=== PATIENT | male | born 1990 | race Caucasian/White ===

== ENCOUNTER 2017-02-03 18:35 | Emergency (ER) | payer BC ==
[2017-02-03] MEDS ORDERED: Sodium Chloride 0.9% 2.5 ML Syringe FLUSH PRN (18:40)
[2017-02-03] MEDS ORDERED: Sodium Chloride 0.9% 10 ML Syringe FLUSH PRN (18:40)
[2017-02-03] MEDS ORDERED: Ketorolac 30 MG/ML SDV IVPUSH ONE (18:40)
[2017-02-03] MEDS ORDERED: Ondansetron 4 MG/2 ML SDV IVPUSH ONE (18:42)
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
[2017-02-03] MEDS ORDERED: Sodium Chloride 0.9% 1,000 ML IV ONE (18:44)
[2017-02-03 19:17] LABS: CHLORIDE,CL 109 mmol/L (98-110); SODIUM,NA 142 mmol/L (136-146)
[2017-02-03] MEDS: Morphine 2 MG/ML Syringe IVPUSH ONE ×2 (19:30→19:36)
[2017-02-03] MEDS ORDERED: Morphine 10 MG/ML Syringe IV ONE (19:33)
[2017-02-03] MEDS ORDERED: Morphine 2 MG/ML Syringe ONE (19:34)
[2017-02-03 22:19] VITALS: BP 132/62
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
== END 2017-02-03 20:18 | disposition home or self-care (01) ==
LOC: MW.ED 18:35
DX: S22.32XA Fracture of one rib, left side, initial encounter for closed fracture (principal); V49.9XXA Car occupant (driver) (passenger) injured in unspecified traffic accident, initial encounter
CPT/HCPCS: 36415; 71101; 72072; 80053; 85025; 85610; 96361; 96374; 96375; 96376; 99283; J2270; J2405; J7040

== ENCOUNTER 2017-08-24 18:18 | Emergency (ER) | payer BC, OTHER ==
--- NOTE | 2017-08-24 19:13 | EDM.PDOC ---
ED HPI GENERAL MEDICAL PROBLEM - General Chief Complaint: Respiratory Problem Stated Complaint: SICK Time Seen by Provider: 08/24/17 19:07 Source of Information: Reports: Patient History Limitations: Reports: No Limitations - History of Present Illness INITIAL COMMENTS - FREE TEXT/NARRATIVE: HISTORY AND PHYSICAL: []27-year-old male presenting with sore throat and a cough for the's 5 days History of Present Illness: []He has history of chewing tobacco Says it is very hard to swallow Review of Systems: As per history of present illness and below otherwise all systems reviewed and negative. Past medical history: As per history of present illness and as reviewed below otherwise noncontributory. Surgical history: As per history of present illness and as reviewed below otherwise noncontributory. Social history: No reported history of drug or alcohol abuse. Family history: As per history of present illness and as reviewed below otherwise noncontributory. Physical exam: Alert oriented answering questions appropriately shortness of breath noted HEENT: Atraumatic, normocehpalic, pupils reactive, negative for conjunctival pallor or scleral icterus, mucous membranes moist, throat clear, neck supple, nontender, trachea midline. Lungs: Clear to auscultation, breath sounds equal bilaterally, chest non tender. Heart: S1S2, regular, negative for clicks, rubs, or JVD. Abdomen: Soft, nondistended, nontender. Negative for masses or hepatossplenmegaly. Negative for costovertebral tenderness. Pelvis: Stable nontender. Genitourinary: Deferred. Rectal: Deferred Extremities: Atraumatic, negative for cords or calf pain. Neurovascular unremarkable. Neuro: Awake, alert, oriented. Cranial nerves II through XII unremarkable. Cerebellum unremarkable. Motor and sensory unremarkable throughout. Exam nonfocal. Discussed the negative findings with the patient and his Diagnostics: []Chest x-ray CBC Rapid strep Therapeutics: [] Impression: []Upper respiratory infection Plan: []Home Described virus versus bacterial [id number] Chloraseptic spray may help his throat azithromyacin Definitive disposition and diagnosis as appropriate pending reevaluation and review of above. Onset: Gradual Duration: Day(s): (4) Location: Reports: Neck, Chest Quality: Reports: Ache Severity: Moderate Improves with: Reports: None Worsens with: Reports: None throat Pain Score (Numeric/FACES): 7 - Related Data Allergies Allergy/AdvReac Type Severity Reaction Status Date / Time No Known Allergies Allergy Verified 08/24/17 18:31 Home Meds: Home Meds Azithromycin [IJP: Azithromycin] 250 mg PO DAILY #6 tab 08/24/17 [Rx] Topiramate [Topamax] 08/24/17 [History] Past Medical History - Past Health History Medical/Surgical History: Denies Medical/Surgical History Neurological History: Reports: Migraines - Infectious Disease History Infectious Disease History: Reports: Chicken Pox - Past Surgical History Musculoskeletal Surgical History: Reports: Other (See Below) Other Musculoskeletal Surgeries/Procedures:: ankle Social & Family History - Family History Family Medical History: Noncontributory - Tobacco Use Smoking Status *Q: Never Smoker Second Hand Smoke Exposure: No - Caffeine Use Caffeine Use: Reports: Energy Drinks - Alcohol Use Days Per Week of Alcohol Use: 4 Number of Drinks Per Day: 2 Total Drinks Per Week: 8 - Recreational Drug Use Recreational Drug Use: No ED ROS GENERAL - Review of Systems Review Of Systems: ROS reveals no pertinent complaints other than HPI. ED EXAM, GENERAL - Physical Exam Exam: See Below (see dictation) Course - Vital Signs Last Recorded V/S: Last Vital Signs Temp 37.2 C 08/24/17 18:33 Pulse 84 08/24/17 18:33 Resp 18 08/24/17 18:33 BP 143/86 H 08/24/17 18:33 Pulse Ox 96 08/24/17 18:33 - Orders/Labs/Meds Orders: Active Orders 24 hr Category Date Time Status Chest 2V [CR] Stat Exams 08/24/17 18:40 Taken COMPREHENSIVE METABOLIC PN,CMP [CHEM] Stat Lab 08/24/17 19:20 Received CULTURE STREP A CONFIRMATION [RM] Stat Lab 08/24/17 19:17 Results STREP SCRN A RAPID W CULT CONF [RM] Stat Lab 08/24/17 19:17 Ordered Labs: Laboratory Tests 08/24/17 Range/Units 19:20 WBC 5.89 (4.0-11.0) K/uL RBC 5.11 (4.50-5.90) M/uL Hgb 15.9 (13.0-17.0) g/dL Hct 44.7 (38.0-50.0) % MCV 87.5 (80.0-98.0) fL MCH 31.1 (27.0-32.0) pg MCHC 35.6 (31.0-37.0) g/dL RDW Std Deviation 40.9 (28.0-62.0) fl RDW Coeff of Nash 13 (11.0-15.0) % Plt Count 226 (150-400) K/uL MPV 10.30 (7.40-12.00) fL Neut % (Auto) 60.6 (48.0-80.0) % Lymph % (Auto) 27.2 (16.0-40.0) % [place] % (Auto) 10.7 (0.0-15.0) % Eos % (Auto) 1.2 (0.0-7.0) % Baso % (Auto) 0.3 (0.0-1.5) % Neut # (Auto) 3.6 (1.4-5.7) K/uL Lymph # (Auto) 1.6 (0.6-2.4) K/uL [place] # (Auto) 0.6 (0.0-0.8) K/uL Eos # (Auto) 0.1 (0.0-0.7) K/uL Baso # (Auto) 0.0 (0.0-0.1) K/uL Nucleated RBC % 0.0 /100WBC Nucleated RBCs # 0 K/uL Departure - Departure Time of Disposition: 19:58 Disposition: Home, Self-Care 01 Condition: Good Clinical Impression: URI (upper respiratory infection) - Discharge Information Prescriptions: Azithromycin [IJP: Azithromycin] 250 mg PO DAILY #6 tab Instructions: Viral Respiratory Infection, [id number] Referrals: Gerson Sanchez MD [Primary Care Provider] - Forms: ED Department Discharge Additional Instructions: The following information is given to patients seen in the emergency department who are being discharged to home. This information is to outline your options for follow-up care. We provide all patients seen in our emergency department with a follow-up referral. The need for follow-up, as well as the timing and circumstances, are variable depending upon the specifics of your emergency department visit. If you don't have a primary care physician on staff, we will provide you with a referral. We always advise you to contact your personal physician following an emergency department visit to inform them of the circumstance of the visit and for follow-up with them and/or the need for any referrals to a consulting specialist. The emergency department will also refer you to a specialist when appropriate. This referral assures that you have the opportunity for followup care with a specialist. All of these measure are taken in an effort to provide you with optimal care, which includes your followup. Under all circumstances we always encourage you to contact your private physician who remains a resource for coordinating your care. When calling for followup care, please make the office aware that this follow-up is from your recent emergency room visit. If for any reason you are refused follow-up, please contact the [facility] emergency department at and asked to speak to the emergency department charge nurse. You have a upper respiratory infection that will likely not respond to an antibiotic Request is azithromycin Chloraseptic spray [id number] may help with your sore throat Stopping tobacco may also help with your sore throat Follow-up with your primary care doctor next week Return to the emergency room as directed and discussed - My Orders Last 24 Hours: My Active Orders 08/24/17 18:40 Chest 2V [CR] Stat 08/24/17 19:17 CULTURE STREP A CONFIRMATION [RM] Stat STREP SCRN A RAPID W CULT CONF [RM] Stat 08/24/17 19:20 COMPREHENSIVE METABOLIC PN,CMP [CHEM] Stat - Assessment/Plan Last 24 Hours: My Active Orders 08/24/17 18:40 Chest 2V [CR] Stat 08/24/17 19:17 CULTURE STREP A CONFIRMATION [RM] Stat STREP SCRN A RAPID W CULT CONF [RM] Stat 08/24/17 19:20 COMPREHENSIVE METABOLIC PN,CMP [CHEM] Stat
[2017-08-24 19:55] LABS: CHLORIDE,CL 105 mmol/L (98-107); SODIUM,NA 139 mmol/L (136-148)
[2017-08-24 20:13] VITALS: BP 140/84
--- NOTE | 2017-08-26 14:24 | CR ---
EXAM DATE: 08/24/17 PATIENT'S AGE: 27 Patient: [facility] Facility: [place], [place] Site . Site : 1990 Study: XRay Chest [id number]/28/2018 6:54:02 PM Ordering Physician: Doctor Perez Final Report: INDICATION: Cough; sore throat for a few days; coughing up large amounts of dark blood. COMPARISON: None. TECHNIQUE: Two-view chest. FINDINGS: Normal size cardiac silhouette. Clear lung simms without evidence of acute pneumonic infiltrates or CHF. No pneumothorax or pleural effusion. IMPRESSION: Negative chest. Dictated by Dale Marie MD @ Aug 24 2017 7:13PM (Electronic Signature) Report Signed by Proxy. YANIV
== END 2017-08-24 20:10 | disposition home or self-care (01) ==
LOC: MW.ED 18:18
DX: J06.9 Acute upper respiratory infection, unspecified (principal); F17.290 Nicotine dependence, other tobacco product, uncomplicated
CPT/HCPCS: 36415; 71046; 71046-26; 80053; 85025; 87081; 87880; 99282; 99283

== ENCOUNTER 2020-03-14 00:53 | Emergency (ER) | payer BC, OTHER ==
--- NOTE | 2020-03-14 00:59 | EDM.PDOC ---
ED HPI GENERAL MEDICAL PROBLEM - General Chief Complaint: Behavioral/Psych Stated Complaint: MENTAL HEALTH Time Seen by Provider: 03/14/20 00:57 - History of Present Illness INITIAL COMMENTS - FREE TEXT/NARRATIVE: History of present illness: [] The police escorted this patient to the department. They had been called by a witness they considered reliable but said he was holding a gun to his head threatening to commit suicide. The supervisor drapery hanging shared with me screenshots of text messages the patient had sensing was going to blow his brains out and saying he was going to kill himself. They expressed anger at his disagreement about whether he had been an adequate father and . Repeatedly he had threatened to kill himself and those attacks. He admitted to the police that they were his texts. He admits that he was angry with his . He admits that the texts are his. He says he has no real intent to hurt himself. He denies that he held a gun to his head. He is never been admitted for depression or treated for depression and he has no prior suicide attempt. He is involved in an ongoing dispute with his and plans to sleep on the couch. He did not see any resolution of these events in the near future. Review of systems: As per history of present illness and below otherwise all systems reviewed and negative. Past medical history: As per history of present illness and as reviewed below otherwise noncontributory. Surgical history: As per history of present illness and as reviewed below otherwise noncontributory. Social history: No reported history of drug or alcohol abuse. Family history: As per history of present illness and as reviewed below otherwise noncontributory. Physical exam: Constitutional - well developed, well-nourished and in no acute distress HEENT - normocephalic, no evidence of trauma - external nose and mouth normal - no mass in neck and no JVD - mucosae moist EYES - full EOM, PERRL, no icterus - no evidence of inflammation, injection, or drainage Respiratory - no respiratory distress, equal bilateral expansion, lungs clear to auscultation and no abnormal lung sounds Cardiovascular - Regular Rhythm with S1 and S2 appreciated and no murmur, gallop or rub. GI - abdomen soft without distension or organomegaly - normal bowel sounds - no guard or rebound Musculoskeletal no gross deformity of long bones or joints - no tenderness, swelling or edema Neurologic - Alert and oriented times four - CN II-XII grossly intact - motor sensory and coordination symmetrically normal Psychiatric - appropriate mood and affect with normal thought content Hematologic - No petechiae or purpura - mucosa appropriate color and sclera not pale - normal nail bed color and refill Integument - no rash or evidence of trauma - normal turgor Diagnostics: [] Therapeutics: [] Impression: [] Plan: [] Definitive disposition and diagnosis as appropriate pending reevaluation and review of above. - Related Data Allergies Allergy/AdvReac Type Severity Reaction Status Date / Time No Known Allergies Allergy Verified 03/14/20 02:48 Home Meds: Home Meds . [No Known Home Meds] 03/14/20 [History] Past Medical History - Past Health History Medical/Surgical History: Denies Medical/Surgical History Neurological History: Reports: Migraines - Infectious Disease History Infectious Disease History: Reports: Chicken Pox - Past Surgical History Musculoskeletal Surgical History: Reports: Other (See Below) Other Musculoskeletal Surgeries/Procedures:: ankle Social & Family History - Family History Family Medical History: No Pertinent Family History - Caffeine Use Caffeine Use: Reports: Energy Drinks ED ROS GENERAL - Review of Systems Review Of Systems: Comprehensive ROS is negative, except as noted in HPI. ED EXAM, GENERAL - Physical Exam Exam: See Below Free Text/Narrative:: My physical exam is in the HPI #1 Interpretation EKG Interpretation Comments: EKG done 03/14/2020 1:39 AM and interpreted at 1:41 AM. Sinus rhythm heart rate 96 Redig XVI QRS duration 91 MI 140 QTc 416[address] Some minor ST abnormalities. When compared to 02/10/2020 there is a shift in the axis but otherwise no acute change and there is no obvious injury. Impression no acute injury Course - Vital Signs Text/Narrative:: Hard time with been with the patient he has been completely and appeared sober. As of the nature of his threat in the admission that he made the threats in the text to his father I feel he needs psychiatric evaluation. The situational depression with no prior threat in the significant violent nature of his threat suggest to be a high risk of potential suicide. This story directly to the psychiatrist Dr.Preszler davalos [place] and she agreed to accept this patient on the hold at the [facility]. Last Recorded V/S: Last Vital Signs Temp 36.4 C 03/14/20 02:20 Pulse 107 H 03/14/20 03:00 Resp 18 03/14/20 03:00 BP 139/79 03/14/20 03:00 Pulse Ox 98 03/14/20 03:00 - Orders/Labs/Meds Orders: Active Orders 24 hr Category Date Time Status EKG Documentation Completion [RC] AM Care 03/14/20 01:24 Active Saline Lock Insert [OM.PC] Stat Oth 03/14/20 01:24 Ordered Labs: Laboratory Tests 03/14/20 03/14/20 03/14/20 Range/Units 01:10 01:30 01:30 WBC 9.27 (4.0-11.0) K/uL RBC 5.23 (4.50-5.90) M/uL Hgb 16.5 (13.0-17.0) g/dL Hct 48.0 (38.0-50.0) % MCV 91.8 (80.0-98.0) fL MCH 31.5 (27.0-32.0) pg MCHC 34.4 (31.0-37.0) g/dL RDW Std Deviation 45.8 (28.0-62.0) fl RDW Coeff of Nash 14 (11.0-15.0) % Plt Count 253 (150-400) K/uL MPV 10.60 (7.40-12.00) fL Neut % (Auto) 50.6 (48.0-80.0) % Lymph % (Auto) 38.5 (16.0-40.0) % [place] % (Auto) 9.6 (0.0-15.0) % Eos % (Auto) 1.1 (0.0-7.0) % Baso % (Auto) 0.2 (0.0-1.5) % Neut # (Auto) 4.7 (1.4-5.7) K/uL Lymph # (Auto) 3.6 H (0.6-2.4) K/uL [place] # (Auto) 0.9 H (0.0-0.8) K/uL Eos # (Auto) 0.1 (0.0-0.7) K/uL Baso # (Auto) 0.0 (0.0-0.1) K/uL Nucleated RBC % 0.0 /100WBC Nucleated RBCs # 0 K/uL Sodium 142 (136-148) mmol/L Potassium 3.9 (3.5-5.1) mmol/L Chloride 107 (98-107) mmol/L Carbon Dioxide 21.8 (21.0-32.0) mmol/L BUN 9 (7.0-18.0) mg/dL Creatinine 1.1 (0.8-1.3) mg/dL Est Cr Clr Drug Dosing TNP Estimated GFR (MDRD) > 60.0 ml/min Glucose 108 H (74-106) mg/dL Calcium 8.8 (8.5-10.1) mg/dL Total Bilirubin 0.2 (0.2-1.0) mg/dL AST 42 H (15-37) IU/L ALT 93 H (14-63) IU/L Alkaline Phosphatase 96 (46-116) U/L Total Protein 7.8 (6.4-8.2) g/dL Albumin 4.2 (3.4-5.0) g/dL Globulin 3.6 (2.6-4.0) g/dL Albumin/Globulin Ratio 1.2 (0.9-1.6) TSH 3rd Generation 3.45 (0.36-3.74) uIU/mL Salicylates 1.2 (0-20) mg/dL Urine Opiates Screen NEGATIVE (NEGATIVE) Ur Oxycodone Screen NEGATIVE (NEGATIVE) Urine Methadone Screen NEGATIVE (NEGATIVE) Acetaminophen ug/mL Ur Barbiturates Screen NEGATIVE (NEGATIVE) Ur Phencyclidine Scrn NEGATIVE (NEGATIVE) Ur Amphetamine Screen NEGATIVE (NEGATIVE) U Methamphetamines Scrn NEGATIVE (NEGATIVE) U Benzodiazepines Scrn NEGATIVE (NEGATIVE) U Cocaine Metab Screen NEGATIVE (NEGATIVE) U Marijuana (THC) Screen NEGATIVE (NEGATIVE) Ethyl Alcohol 116 mg/dL SARS CoV-2 RNA Rapid CHRISTY (NEGATIVE) 03/14/20 03/14/20 Range/Units 01:30 01:35 WBC (4.0-11.0) K/uL RBC (4.50-5.90) M/uL Hgb (13.0-17.0) g/dL Hct (38.0-50.0) % MCV (80.0-98.0) fL MCH (27.0-32.0) pg MCHC (31.0-37.0) g/dL RDW Std Deviation (28.0-62.0) fl RDW Coeff of Nash (11.0-15.0) % Plt Count (150-400) K/uL MPV (7.40-12.00) fL Neut % (Auto) (48.0-80.0) % Lymph % (Auto) (16.0-40.0) % [place] % (Auto) (0.0-15.0) % Eos % (Auto) (0.0-7.0) % Baso % (Auto) (0.0-1.5) % Neut # (Auto) (1.4-5.7) K/uL Lymph # (Auto) (0.6-2.4) K/uL [place] # (Auto) (0.0-0.8) K/uL Eos # (Auto) (0.0-0.7) K/uL Baso # (Auto) (0.0-0.1) K/uL Nucleated RBC % /100WBC Nucleated RBCs # K/uL Sodium (136-148) mmol/L Potassium (3.5-5.1) mmol/L Chloride (98-107) mmol/L Carbon Dioxide (21.0-32.0) mmol/L BUN (7.0-18.0) mg/dL Creatinine (0.8-1.3) mg/dL Est Cr Clr Drug Dosing Estimated GFR (MDRD) ml/min Glucose (74-106) mg/dL Calcium (8.5-10.1) mg/dL Total Bilirubin (0.2-1.0) mg/dL AST (15-37) IU/L ALT (14-63) IU/L Alkaline Phosphatase (46-116) U/L Total Protein (6.4-8.2) g/dL Albumin (3.4-5.0) g/dL Globulin (2.6-4.0) g/dL Albumin/Globulin Ratio (0.9-1.6) TSH 3rd Generation (0.36-3.74) uIU/mL Salicylates (0-20) mg/dL Urine Opiates Screen (NEGATIVE) Ur Oxycodone Screen (NEGATIVE) Urine Methadone Screen (NEGATIVE) Acetaminophen <2.0 ug/mL Ur Barbiturates Screen (NEGATIVE) Ur Phencyclidine Scrn (NEGATIVE) Ur Amphetamine Screen (NEGATIVE) U Methamphetamines Scrn (NEGATIVE) U Benzodiazepines Scrn (NEGATIVE) U Cocaine Metab Screen (NEGATIVE) U Marijuana (THC) Screen (NEGATIVE) Ethyl Alcohol mg/dL SARS CoV-2 RNA Rapid CHRISTY NEGATIVE (NEGATIVE) Departure - Departure Time of Disposition: 04:00 Disposition: DC/Tfer to Psych Hosp/Unit [facility] Condition: Good Clinical Impression: Depressive disorder, Threatening suicide - Discharge Information Referrals: Jazlyn Coronado DO [Primary Care Provider] - Forms: ED Department Discharge Sepsis Event Note (ED) - Focused Exam Vital Signs: Vital Signs Temp Pulse Resp BP Pulse Ox 03/14/20 03:00 107 H 18 139/79 98 03/14/20 02:20 36.4 C 100 18 152/68 H 95 03/14/20 01:00 36.1 C 104 H 20 174/111 H 96 - My Orders Last 24 Hours: My Active Orders 03/14/20 01:24 EKG Documentation Completion [RC] AM Saline Lock Insert [OM.PC] Stat - Assessment/Plan Last 24 Hours: My Active Orders 03/14/20 01:24 EKG Documentation Completion [RC] AM Saline Lock Insert [OM.PC] Stat
[2020-03-14 02:11] LABS: BLOOD UREA NITROGEN,BUN 9 mg/dL (7.0-18.0); CARBON DIOXIDE,CO2 21.8 mmol/L (21.0-32.0); CHLORIDE,CL 107 mmol/L (98-107); GLUCOSE RANDOM 108 mg/dL (74-106); POTASSIUM,K 3.9 mmol/L (3.5-5.1); SODIUM,NA 142 mmol/L (136-148)
[2020-03-14] MEDS ORDERED: Acetaminophen 500 MG Tab PO ONE (03:32)
[2020-03-14 06:31] VITALS: BP 128/59; PULSE 89
== END 2020-03-14 09:05 ==
LOC: MW.ED 00:53
DX: F32.9 Major depressive disorder, single episode, unspecified (principal); Z20.828 Contact with and (suspected) exposure to other viral communicable diseases
CPT/HCPCS: 36415; 80053; 80305; 80307; 84443; 85025; 87635; 93005; 99285; A9270; 93010; 99283; U0002

== ENCOUNTER 2020-04-07 09:13 | Day surgery (SDC) | payer OTHER ==
[~2020-04-07 09:13] MED LIST: Glycopyrrolate 0.2 MG/ML SDV ONE; Lidocaine 2% 5 ML SDV ONE; Midazolam 1 MG/ML 2 ML SDV ONE; Propofol 200 MG/20 ML SDV ONE
--- NOTE | 2020-04-07 09:56 | PCM.PREANE ---
Preanesthetic Assessment - Anesthesia/Transfusion/Family Hx Anesthesia History: Prior Anesthesia Without Reaction Family History of Anesthesia Reaction: No Transfusion History: No Prior Transfusion(s) Intubation History: Unknown - Review of Systems General: No Symptoms Pulmonary: No Symptoms Cardiovascular: No Symptoms Gastrointestinal: Abdominal Pain (epigastric) Neurological: No Symptoms Other: Reports: None - Physical Assessment Height: 6 ft 1 in Weight: 125.192 kg ASA Class: 2 Mental Status: Alert & Oriented x3 Airway Class: Mallampati = 1 Dentition: Reports: Normal Dentition Thyro-Mental Finger Breadths: 3 Mouth Opening Finger Breadths: 2 (small mouth) ROM/Head Extension: Full Lungs: Clear to Auscultation, Normal Respiratory Effort Cardiovascular: Regular Rate, Regular Rhythm - Allergies Allergies/Adverse Reactions: Allergies Allergy/AdvReac Type Severity Reaction Status Date / Time No Known Allergies Allergy Verified 04/01/20 07:50 - Blood Blood Available: No - Anesthesia Plan Pre-Op Medication Ordered: None - Acknowledgements Anesthesia Type Planned: MAC Pt an Appropriate Candidate for the Planned Anesthesia: Yes Alternatives and Risks of Anesthesia Discussed w Pt/Guardian: Yes Pt/Guardian Understands and Agrees with Anesthesia Plan: Yes PreAnesthesia Questionnaire - Past Health History Medical/Surgical History: Denies Medical/Surgical History HEENT History: Reports: None Cardiovascular History: Reports: None Respiratory History: Reports: None Gastrointestinal History: Reports: GERD Other Gastrointestinal History: epigastric pain Genitourinary History: Reports: None Musculoskeletal History: Reports: Fracture Other Musculoskeletal History: hx fx ankle, ribs and collarbone Neurological History: Reports: Migraines Psychiatric History: Reports: Addiction, Anxiety, Depression Endocrine/Metabolic History: Reports: Obesity/BMI 30+ (BMI 36.4) Hematologic History: Reports: None Immunologic History: Reports: None Oncologic (Cancer) History: Reports: None Dermatologic History: Reports: None - Infectious Disease History Infectious Disease History: Reports: Chicken Pox - Past Surgical History HEENT Surgical History: Reports: Tonsillectomy GI Surgical History: Reports: Other (See Below) (anal fistulectomy) Other Musculoskeletal Surgeries/Procedures:: ankle - SUBSTANCE USE Tobacco Use Status *Q: Never Tobacco User Recreational Drug Use History: Yes - HOME MEDS Home Medications: Home Meds Pantoprazole Sodium [Protonix] 40 mg PO DAILY 04/01/20 [History] Sertraline HCl 50 mg PO DAILY 04/01/20 [History] - CURRENT (IN HOUSE) MEDS Current Meds: Current Medications Discontinued Medications Glycopyrrolate (Robinul) Confirm Administered Dose 0.2 mg .ROUTE .STK-MED ONE Stop: 04/07/20 07:03 Lidocaine (Xylocaine-Mpf 2%) Confirm Administered Dose 5 ml .ROUTE .STK-MED ONE Stop: 04/07/20 07:03 Midazolam HCl (Versed 1 Mg/Ml) Confirm Administered Dose 2 mg .ROUTE .STK-MED ONE Stop: 04/07/20 07:03 Propofol (Diprivan 20 Ml) Confirm Administered Dose 200 mg .ROUTE .STK-MED ONE Stop: 04/07/20 07:03
[2020-04-07] MEDS ORDERED: Propofol 200 MG/20 ML SDV ONE (10:12)
--- NOTE | 2020-04-07 10:23 | PCM.OPNOTE ---
- General Post-Op/Procedure Note Date of Surgery/Procedure: 04/07/20 Operative Procedure(s): EGD with biopsies Findings: Gastritis dictation number [id number] Pre Op Diagnosis: Abdominal pain Post-Op Diagnosis: Gastritis Primary Surgeon: Olu Godoy Pathology: biopsies Complications: None Condition: Good
--- NOTE | 2020-04-07 10:29 | PCM.POSTAN ---
POST ANESTHESIA ASSESSMENT - MENTAL STATUS Mental Status: Alert, Oriented - VITAL SIGNS Vital Signs: Last Vital Signs Temp 36.7 C 04/07/20 09:59 Pulse 70 04/07/20 09:59 Resp 16 04/07/20 09:59 BP 134/70 04/07/20 09:59 Pulse Ox 96 04/07/20 09:59 - RESPIRATORY Respiratory Status: Respiratory Rate WNL, Airway Patent, O2 Saturation Stable - CARDIOVASCULAR CV Status: Pulse Rate WNL, Blood Pressure Stable - GASTROINTESTINAL GI Status: No Symptoms - PAIN Pain Score: 0 - POST OP HYDRATION Hydration Status: Adequate & Stable - OBSERVATIONS Free Text/Narrative:: No anesthesia problems
[2020-04-07 10:52] VITALS: BP 115/56; PULSE 95
--- NOTE | 2020-04-07 10:54 | PCM48HPAN ---
Post Anesthesia Note - EVALUATION WITHIN 48HRS OF ANESTHETIC Vital Signs in Normal Range: Yes Patient Participated in Evaluation: Yes Respiratory Function Stable: Yes Airway Patent: Yes Cardiovascular Function Stable: Yes Hydration Status Stable: Yes Pain Control Satisfactory: Yes Nausea and Vomiting Control Satisfactory: Yes Mental Status Recovered: Yes Vital Signs: Last Vital Signs Temp 92 C H 04/07/20 10:37 Pulse 95 04/07/20 10:37 Resp 16 04/07/20 10:37 BP 115/56 L 04/07/20 10:37 Pulse Ox 95 04/07/20 10:37 - COMMENTS/OBSERVATIONS Free Text/Narrative:: No anesthesia problems
[2020-04-07] MEDS ORDERED: Lactated Ringers 1,000 ML IV SCH (11:00)
--- NOTE | 2020-04-07 12:49 | OR ---
SURGEON: JEAN-CLAUDE READ MD DATE OF PROCEDURE: 04/07/2020 PREOPERATIVE DIAGNOSIS: Midepigastric abdominal pain. POSTOPERATIVE DIAGNOSIS: Mild gastritis. PROCEDURE PERFORMED: Esophagogastroduodenoscopy with biopsies. LIMITATIONS: None. ANESTHESIA: General with anesthesiologist. REASON FOR PROCEDURE: The patient is a pleasant 30-year-old gentleman who says for the past 2 to 3 months, he has had midepigastric pain that is sharp and feels like a pressure. It is made worse in the evening when he is lying down, made better if he passes gas. He denies any real heartburn symptoms. The patient was scheduled for an upper endoscopy. The patient also had a subsequent ultrasound of the abdomen that found multiple gallstones, but gallbladder wall thickening and no peritoneal fluid. This was discussed with the patient. PROCEDURE IN DETAIL: Physical exam was performed. The major risks and benefits associated with the procedure were explained to the patient in detail. The patient verbalized understanding of the same. The patient was then connected to the appropriate monitoring devices and IV started. EKG, pulse, pulse oximetry, blood pressure, and capnography were monitored throughout the procedure. The patient's oxygen and sedation were provided by the anesthesiologist. After adequate sedation was achieved, an upper endoscope was advanced under direct visualization without much difficulty to the upper GI tract. The anatomy and the mucosa of the esophagus, GE junction, stomach, and at least the 2nd part of the duodenum were all inspected. Duodenum appeared normal. Scope was brought back into the stomach. The patient did have some mild gastritis throughout the entirety of the stomach. Both retro and antegrade views of the stomach were done. No ulcerations were seen. Biopsies were done of the pylorus, and then several random biopsies of the rest of the stomach were done. Scope was withdrawn to the GE junction. GE junction was approximately 40 cm from the incisor. The Z-line was intact with a good squamocolumnar junction. The scope was brought back into the stomach. There was good hemostasis at the biopsy sites. The stomach was deflated. The scope was then brought up through the esophagus. Esophagus appeared normal. Scope was completely removed, and the procedure was terminated. ENDOSCOPIC DIAGNOSIS: Mild gastritis. RECOMMENDATIONS: The patient should continue taking his PPI. He should also continue with cessation of alcohol. The patient should follow up in the clinic to go over the pathology. At that time, we will also go over again his gallbladder ultrasound. JOSELO / DEJA /[id number]
== END 2020-04-07 10:50 | disposition home or self-care (01) ==
LOC: MW.SDS 09:13
PROVIDERS: ATTEND Surgery
DX: K29.50 Unspecified chronic gastritis without bleeding (principal); F17.210 Nicotine dependence, cigarettes, uncomplicated; E66.9 Obesity, unspecified; Z68.36 Body mass index [BMI] 36.0-36.9, adult; Z79.899 Other long term (current) drug therapy
CPT/HCPCS: 43239; 88305; 88312; J2001; J2250; J2704; J3490; 00731

== ENCOUNTER 2020-04-26 11:07 | Day surgery (SDC) | payer OTHER ==
[~2020-04-26 11:07] MED LIST changes: +Acetaminophen 1,000 MG in Premix Bag 1 BAG IV ONE; +Indocyanine Green 25 MG SDV ONE; +Lactated Ringers 1,000 ML IV SCH; +Ondansetron 4 MG/2 ML SDV ONE; +Pregabalin 75 MG Cap PO SCH; +Rocuronium Bromide 50 MG/5 ML Syringe ONE; +cefOXitin 2 GM in Premix Bag 1 BAG IV ONE; +fentaNYL 250 MCG/5 ML SDV ONE
[2020-04-26] MEDS ORDERED: EPINEPHrine 1:10,000 1 MG/10 ML Syringe IVPUSH PRN (11:35)
[2020-04-26] MEDS ORDERED: Atropine 0.1 MG/ML 10 ML Syringe IVPUSH PRN ×2 (11:35)
[2020-04-26] MEDS ORDERED: Albuterol 0.083% 2.5 MG/3 ML Neb Soln NEB PRN (11:35)
[2020-04-26] MEDS ORDERED: 50% Dextrose in Water 50 ML Syringe IVPUSH PRN (11:35)
[2020-04-26] MEDS ORDERED: Naloxone 0.4 MG/ML Syringe IVPUSH PRN (11:35)
--- NOTE | 2020-04-26 11:40 | PCM.PREANE ---
Preanesthetic Assessment - Anesthesia/Transfusion/Family Hx Anesthesia History: Prior Anesthesia Without Reaction Family History of Anesthesia Reaction: No Transfusion History: No Prior Transfusion(s) Intubation History: Unknown - Review of Systems General: No Symptoms Pulmonary: No Symptoms Cardiovascular: No Symptoms Gastrointestinal: No Symptoms Neurological: No Symptoms Other: Reports: None - Physical Assessment NPO Status Date: 04/25/20 Height: 6 ft 1 in Weight: 125.645 kg ASA Class: 2 Mental Status: Alert & Oriented x3 Airway Class: Mallampati = 2 Dentition: Reports: Normal Dentition ROM/Head Extension: Full Lungs: Clear to Auscultation, Normal Respiratory Effort Cardiovascular: Regular Rate - Allergies Allergies/Adverse Reactions: Allergies Allergy/AdvReac Type Severity Reaction Status Date / Time No Known Allergies Allergy Verified 04/20/20 14:27 - Blood Blood Available: No - Anesthesia Plan Pre-Op Medication Ordered: None - Acknowledgements Anesthesia Type Planned: General Anesthesia Pt an Appropriate Candidate for the Planned Anesthesia: Yes Alternatives and Risks of Anesthesia Discussed w Pt/Guardian: Yes Pt/Guardian Understands and Agrees with Anesthesia Plan: Yes Additional Comments: meds: zoloft and trazadone (no tramadol) PLAN: get PreAnesthesia Questionnaire - Past Health History Medical/Surgical History: Denies Medical/Surgical History HEENT History: Reports: None Cardiovascular History: Reports: None Respiratory History: Reports: None Gastrointestinal History: Reports: Other (See Below) Other Gastrointestinal History: intermittent epigastric pain Genitourinary History: Reports: None Musculoskeletal History: Reports: Fracture Other Musculoskeletal History: hx fx ankle, ribs and collarbone Neurological History: Reports: Migraines Psychiatric History: Reports: Addiction, Anxiety, Depression Endocrine/Metabolic History: Reports: Obesity/BMI 30+ Hematologic History: Reports: None Immunologic History: Reports: None Oncologic (Cancer) History: Reports: None Dermatologic History: Reports: None - Infectious Disease History Infectious Disease History: Reports: Chicken Pox - Past Surgical History Head Surgeries/Procedures: Reports: None HEENT Surgical History: Reports: Tonsillectomy Cardiovascular Surgical History: Reports: None Respiratory Surgical History: Reports: None GI Surgical History: Reports: EGD, Other (See Below) Other GI Surgeries/Procedures: hx anal fistulectomy Male Surgical History: Reports: None Endocrine Surgical History: Reports: None Neurological Surgical History: Reports: None Musculoskeletal Surgical History: Reports: Other (See Below) Other Musculoskeletal Surgeries/Procedures:: repair of fx ankle Oncologic Surgical History: Reports: None Dermatological Surgical History: Reports: None - SUBSTANCE USE Tobacco Use Status *Q: Former Tobacco User Tobacco Use Within Last Twelve Months: Other (See Below) - HOME MEDS Home Medications: Home Meds Sertraline HCl 100 mg PO DAILY 04/01/20 [History] Fish Oil/Talent-3 Fatty Acids [Fish Oil 1,000 MG] 1 tab PO DAILY 04/20/20 [History] Multivitamin 1 tab PO DAILY 04/20/20 [History] traZODone HCl [Trazodone HCl] 50 mg PO BEDTIME 04/20/20 [History] - CURRENT (IN HOUSE) MEDS Current Meds: Current Medications Albuterol (Proventil Neb Soln) 2.5 mg NEB ONETIME PRN PRN Reason: Wheezing Atropine Sulfate (Atropine 0.1 Mg/Ml) 0.5 mg IVPUSH ASDIRECTED PRN PRN Reason: Hypo-perfusion Atropine Sulfate (Atropine 0.1 Mg/Ml) 1 mg IVPUSH ASDIRECTED PRN PRN Reason: Hypo-Perfusion Dextrose/Water (Dextrose 50% In Water) 50 ml IVPUSH ASDIRECTED PRN PRN Reason: Hypoglycemia Epinephrine HCl (Epinephrine 1:10,000) 1 mg IVPUSH ASDIRECTED PRN PRN Reason: ACLS Guidelines Fentanyl (Sublimaze) 50 - 100 mcg IVPUSH Q5M PRN PRN Reason: Pain Lactated Ringer's (Ringers, Lactated) 1,000 mls @ 125 mls/hr IV ASDIRECTED ELI Naloxone HCl (Narcan) 0.1 mg IVPUSH ASDIRECTED PRN PRN Reason: Respiratory Depression Pregabalin (Lyrica) 150 mg PO DAILY ELI Discontinued Medications Fentanyl (Sublimaze) Confirm Administered Dose 250 mcg .ROUTE .STK-MED ONE Stop: 04/26/20 11:03 Glycopyrrolate (Robinul) Confirm Administered Dose 0.4 mg .ROUTE .STK-MED ONE Stop: 04/26/20 11:02 Cefoxitin Sodium 2 gm/ Premix 50 mls @ 100 mls/hr IV ONETIME ONE Stop: 04/25/20 15:18 Acetaminophen 1,000 mg/ Premix 100 mls @ 400 mls/hr IV NOW ONE Stop: 04/26/20 09:14 Indocyanine Green (Indocyanine Green) 5 mg .XX ONETIME ONE Stop: 04/26/20 09:01 Lidocaine (Xylocaine-Mpf 2%) Confirm Administered Dose 5 ml .ROUTE .STK-MED ONE Stop: 04/26/20 11:02 Midazolam HCl (Versed 1 Mg/Ml) Confirm Administered Dose 2 mg .ROUTE .STK-MED ONE Stop: 04/26/20 11:02 Ondansetron HCl (Zofran) Confirm Administered Dose 4 mg .ROUTE .STK-MED ONE Stop: 04/26/20 11:02 Propofol (Diprivan 20 Ml) Confirm Administered Dose 200 mg .ROUTE .STK-MED ONE Stop: 04/26/20 11:02 Rocuronium [place] (Rocuronium [place]) Confirm Administered Dose 50 mg .ROUTE .STK-MED ONE Stop: 04/26/20 11:02
[2020-04-26] MEDS ORDERED: Octyl 2-Cyanoacrylate 1 Tube ONE ×2 (12:04→13:55)
[2020-04-26] MEDS ORDERED: Bupivacaine 25%/EPINEPHrine/PF 30 ML ONE (12:04)
[2020-04-26] MEDS ORDERED: ceFAZolin 1 GM Vial ONE (12:26)
[2020-04-26] MEDS ORDERED: Sodium Chloride 0.9% 20 ML ONE (12:26)
[2020-04-26] MEDS ORDERED: ePHEDrine 50 MG/ML SDV ONE (12:48)
[2020-04-26] MEDS ORDERED: fentaNYL 100 MCG/2 ML SDV ONE (12:56)
[2020-04-26] MEDS ORDERED: Metoprolol Tartrate 5 MG/5 ML SDV ONE (12:58)
[2020-04-26] MEDS ORDERED: HYDROmorphone 2 MG/ML Syringe ONE (13:43)
--- NOTE | 2020-04-26 14:15 | PCM.OPNOTE ---
- General Post-Op/Procedure Note Date of Surgery/Procedure: 04/26/20 Operative Procedure(s): Laparoscopic cholecystectomy Findings: Edematous gallbladder dictation number [id number] Pre Op Diagnosis: Symptomatic cholelithiases Post-Op Diagnosis: Symptomatic cholelithiases Anesthesia Technique: General ET Tube Primary Surgeon: Olu Godoy Pathology: gallbladder EBL in mLs: 5 Complications: None Condition: Good
[2020-04-26] MEDS: fentaNYL 100 MCG/2 ML SDV IVPUSH PRN ×2 (14:25→14:50)
--- NOTE | 2020-04-26 15:02 | PCM.POSTAN ---
POST ANESTHESIA ASSESSMENT - MENTAL STATUS Mental Status: Alert, Oriented - VITAL SIGNS Vital Signs: Last Vital Signs Temp 97.9 F 04/26/20 11:16 Pulse 101 H 04/26/20 14:56 Resp 14 04/26/20 14:56 BP 150/84 H 04/26/20 14:56 Pulse Ox 96 04/26/20 14:56 - RESPIRATORY Respiratory Status: Respiratory Rate WNL, Airway Patent, O2 Saturation Stable - CARDIOVASCULAR CV Status: Pulse Rate WNL, Blood Pressure Stable - GASTROINTESTINAL GI Status: No Symptoms - POST OP HYDRATION Hydration Status: Adequate & Stable
[2020-04-26] MEDS ORDERED: Acetaminophen/oxyCODONE 325-10 MG Tab PO ONE (15:36)
[2020-04-26 16:44] VITALS: BP 133/76; PULSE 101
--- NOTE | 2020-04-26 17:39 | PCM48HPAN ---
Post Anesthesia Note - EVALUATION WITHIN 48HRS OF ANESTHETIC Vital Signs in Normal Range: Yes Patient Participated in Evaluation: Yes Respiratory Function Stable: Yes Airway Patent: Yes Cardiovascular Function Stable: Yes Hydration Status Stable: Yes Pain Control Satisfactory: Yes Nausea and Vomiting Control Satisfactory: Yes Mental Status Recovered: Yes Vital Signs: Last Vital Signs Temp 36.6 C 04/26/20 15:00 Pulse 101 H 04/26/20 16:33 Resp 15 04/26/20 16:33 BP 133/76 04/26/20 16:33 Pulse Ox 93 L 04/26/20 16:33
--- NOTE | 2020-04-26 18:59 | OR ---
SURGEON: JEAN-CLAUDE READ MD DATE OF PROCEDURE: 04/26/2020 PREOPERATIVE DIAGNOSIS: Symptomatic cholelithiasis. POSTOPERATIVE DIAGNOSIS: Symptomatic cholelithiasis. PROCEDURE PERFORMED: Laparoscopic cholecystectomy. PRIMARY SURGEON: Jean-Claude Read MD ANESTHESIA: General anesthesia. BLOOD LOSS: 5 mL. COMPLICATIONS: None. FINDINGS: Slightly more edematous gallbladder. REASON FOR PROCEDURE: The patient is a pleasant 30-year-old gentleman who has right upper quadrant epigastric pain. he did have an ultrasound, it showed some gallstones. I did go over potentially gallbladder. His father had similar symptoms, which resolved after his cholecystectomy. I did go over the risks, goals, and alternatives to cholecystectomy. Risks include, but not limited to, bleeding, infection, bile leak, injury to nearby structures such as common bile duct or duodenum, need to convert to open, hernia formation, and that this could be something other than his gallbladder causing his pain. The patient understands, wishes to proceed. PROCEDURE NARRATIVE: The patient was prepped and draped in usual fashion. SCDs were placed. Antibiotics were given. Anesthesia provided by the Anesthesia team. Time-out was performed. An infraumbilical incision was made. This was carried down to the fascia. The fascia was then grasped, was slightly elevated and entered in the open Swati technique. Insufflation was began and pneumoperitoneum was established. Abdomen was then inspected, there did not appear to be any entry injury. Now, the other 5 mm trocars were placed, one in the midepigastric, one in the right upper quadrant, one in the right lower quadrant. These were placed under direct visualization. The gallbladder fundus was grasped and elevated. The patient did have some slight adhesions of the omentum to the gallbladder. These were taken down with Harmonic scalpel. Now, the infundibulum was grasped. The area right around the infundibulum and cystic duct was slightly edematous. There was quite a bit of adipose tissue, but with some gentle blunt dissection did get a great critical view. Did dissect up all the way up the gallbladder. There were just a cystic duct and cystic artery. Also did injection of indocyanine green, which showed the cystic duct. An extra injection showed lighting up of the cystic artery. These structures were then clipped and transected. The gallbladder was then taken off the liver bed with Harmonic scalpel. There was good hemostasis. Gallbladder was placed in the Endo Catch bag. Now, the operative area was again looked at, clips appeared in good position. There was good hemostasis. Some slight irrigation suction was done. Now, the 5 mm trocars were removed under direct visualization and pneumoperitoneum was released. The gallbladder was now removed along with the Swati trocar. The fascia was closed with a [id number] 0 Vicryl stitch. All the trocar sites were again injected with local and closed with 4-0 Monocryl and Dermabond. The patient was transferred to recovery room in stable condition and sponge and needle counts were correct. JOSELO SHORT /[id number]
== END 2020-04-26 17:35 | disposition home or self-care (01) ==
LOC: MW.SDS 11:07
PROVIDERS: ATTEND Surgery
DX: K81.1 Chronic cholecystitis (principal); E66.9 Obesity, unspecified; Z79.899 Other long term (current) drug therapy; Z68.36 Body mass index [BMI] 36.0-36.9, adult
CPT/HCPCS: 47562; 88304; A9270; J0131; J0690; J1170; J2001; J2250; J2405; J2704; J3010; J3490; J7120; 00790

== ENCOUNTER 2020-08-14 18:10 | Emergency (ER) | payer OTHER ==
[2020-08-14] MEDS ORDERED: Diphtheria,Pertussis(Acell),Tetanus Vaccine 0.5 ML Syringe IM ONE (18:18)
[2020-08-14] MEDS ORDERED: Lidocaine 1% PF 2 ML SDV INJECT ONE (18:18)
--- NOTE | 2020-08-14 18:20 | EDM.PDOC ---
ED HPI GENERAL MEDICAL PROBLEM - General Stated Complaint: LFT THUMB Time Seen by Provider: 08/14/20 18:17 Source of Information: Reports: Patient History Limitations: Reports: No Limitations - History of Present Illness INITIAL COMMENTS - FREE TEXT/NARRATIVE: HISTORY AND PHYSICAL: History of present illness: Patient is a 30-year-old male who presents to the emergency room with complaints of laceration to the left thumb. He states he was pulling back on a gun when the mechanism cut his dorsal aspect of thumb. He denies any other extremity involvement. Has full function, flexion extension, of the thumb. Tetanus is up-to-date. Offers no systemic complaints. Review of systems: As per history of present illness and below otherwise all systems reviewed and negative. Past medical history: As per history of present illness and as reviewed below otherwise noncontributory. Surgical history: As per history of present illness and as reviewed below otherwise noncontributory. Social history: See social history for further information Family history: As per history of present illness and as reviewed below otherwise noncontributory. Physical exam: General: Well developed and well nourished 30 year old male. Alert and orientated x 3. Nontoxic in appearance and in no acute distress. Vital signs are stable and have been reviewed by me. Nursing notes were reviewed. HEENT: Atraumatic, normocephalic, pupils equal and reactive bilaterally, negative for conjunctival pallor or scleral icterus, mucous membranes moist, trachea midline. No drooling or trismus noted. No meningeal signs. No hot potato voice noted. Lungs: Clear to auscultation bilaterally. No wheezes, rales, or rhonchi. Chest nontender. Normal work of breathing, no accessory muscles used. Heart: S1S2, regular rate and rhythm without overt murmur, gallops, or rubs. No JVD. No peripheral edema Skin: 2 cm laceration across the distal knuckle of the left thumb. Appears to have no tendon injury. Remaining skin is intact, warm, dry. No lesions or rashes noted. Hematologic: No petechiae or purpra. Mucosa appropriate color and normal nail bed color and refill. Extremities: See skin for details, moves all extremities per self without difficulty or deficits. Neurovascular unremarkable. Neuro: Awake, alert, oriented. Cranial nerves II through XII unremarkable. Cerebellum unremarkable. Motor and sensory unremarkable throughout. Exam nonfocal. Psychiatric: Mood and affect are appropriate. Normal thought process. Answering questions appropriately. Notes: *This patient was seen and evaluated during the 2019 SARS-CoV-2 novel coronavirus pandemic period. Community viral transmission is ongoing at time of this encounter and the emergency department is operating under pandemic response procedures. 1% lidocaine was used to anesthetize the area. Wound was thoroughly cleansed and irrigated with wound wash and chlorhexidine. 4-0 nylon, #4 interrupted sutures were placed. Patient tolerated well. Patient does request a dose of something for pain prior to being discharged. I have talked with the patient about today's findings, in addition to providing specific details for plan of care. Reassessment at the time of disposition demonstrates that the patient is in no acute distress. The patient is stable for discharge, counseling was provided and we discussed in great detail signs and symptoms that would prompt them to return to the Emergency Department. Medication, follow up and supportive care measures were reviewed and discussed. Voices understanding and is agreeable to plan of care. Denies any further questions or concerns at this time. Diagnostics: None Therapeutics: Lidocaine, Tdap Prescription: None Impression: Laceration Plan: 1. Keep the area clean and dry. Continue to monitor for signs of infection. Sutures to be removed in 7-10 days. 2. Tylenol and/or ibuprofen as needed for pain management. 3. Please follow-up with your primary care provider in the next 1-2 days. Return to the ED as needed and as discussed. Definitive disposition and diagnosis as appropriate pending reevaluation and review of above. L thumb Pain Score (Numeric/FACES): 7 - Related Data Allergies Allergy/AdvReac Type Severity Reaction Status Date / Time No Known Allergies Allergy Verified 04/20/20 14:27 Home Meds: Home Meds Sertraline HCl 100 mg PO DAILY 04/01/20 [History] Fish Oil/[place]on-3 Fatty Acids [Fish Oil 1,000 MG] 1 tab PO DAILY 04/20/20 [History] Multivitamin 1 tab PO DAILY 04/20/20 [History] traZODone HCl [Trazodone HCl] 50 mg PO BEDTIME 04/20/20 [History] buPROPion [Wellbutrin] 0 mg PO DAILY 08/14/20 [History] Past Medical History - Past Health History Medical/Surgical History: Denies Medical/Surgical History HEENT History: Reports: None Cardiovascular History: Reports: None Respiratory History: Reports: None Gastrointestinal History: Reports: Other (See Below) Other Gastrointestinal History: intermittent epigastric pain Genitourinary History: Reports: None Musculoskeletal History: Reports: Fracture Other Musculoskeletal History: hx fx ankle, ribs and collarbone Neurological History: Reports: Migraines Psychiatric History: Reports: Addiction, Anxiety, Depression Endocrine/Metabolic History: Reports: Obesity/BMI 30+ Hematologic History: Reports: None Immunologic History: Reports: None Oncologic (Cancer) History: Reports: None Dermatologic History: Reports: None - Infectious Disease History Infectious Disease History: Reports: Chicken Pox - Past Surgical History Head Surgeries/Procedures: Reports: None HEENT Surgical History: Reports: Tonsillectomy Cardiovascular Surgical History: Reports: None Respiratory Surgical History: Reports: None GI Surgical History: Reports: EGD, Other (See Below) Other GI Surgeries/Procedures: hx anal fistulectomy Male Surgical History: Reports: None Endocrine Surgical History: Reports: None Neurological Surgical History: Reports: None Musculoskeletal Surgical History: Reports: Other (See Below) Other Musculoskeletal Surgeries/Procedures:: repair of fx ankle Oncologic Surgical History: Reports: None Dermatological Surgical History: Reports: None Social & Family History - Family History Family Medical History: No Pertinent Family History - Caffeine Use Caffeine Use: Reports: Energy Drinks ED ROS GENERAL - Review of Systems Review Of Systems: Comprehensive ROS is negative, except as noted in HPI. ED EXAM, SKIN/RASH Exam: See Below (See dictation) ED SKIN PROCEDURES - Laceration/Wound Repair Left thumb Appearance: Subcutaneous, Linear Distal NVT: Neuro & Vascular Intact, No Tendon Injury Anesthetic Type: Local Local Anesthesia - Lidocaine (Xylocaine): 1% Plain Local Anesthetic Volume: 2cc Skin Prep: Chlorhexidine (Hibiciens), Saline, Sterile Drape Saline Irrigation (cc's): 250 Exploration/Debridement/Repair: Wound Explored, In a Bloodless Field, Explored to Base, No Foreign Material Found Closed with: Sutures Lac/Wound length In cm: 2 Suture Size: 4-0 Suture Type: Nylon, Interrupted, Simple Drain Placement: No Sterile Dressing Applied: Provider Tetanus Status Addressed: Yes Complications: No Course - Vital Signs Last Recorded V/S: Last Vital Signs Temp 98.2 F 08/14/20 18:25 Pulse 81 08/14/20 18:25 Resp 18 08/14/20 18:25 BP 156/75 H 08/14/20 18:25 Pulse Ox 97 08/14/20 18:25 - Orders/Labs/Meds Orders: Active Orders 24 hr Category Date Time Status Acetaminophen/Codeine [Tylenol with Codeine No.3 300MG/ Med 08/14/20 18:39 Once 30MG] 1 tab PO ONETIME ONE Meds: Medications Discontinued Medications Generic Name Dose Route Start Last Admin Trade Name Jonathan PRN Reason Stop Dose Admin Bacitracin 1 dose 08/14/20 18:26 Bacitracin Oint 1 Gm U/D Packet TOP 08/14/20 18:27 ONETIME ONE Diphtheria/Tetanus/Acell Pertussis 0.5 ml 08/14/20 18:18 Diphtheria,Pertussis(Acell),Tetanus Vaccine 0.5 Ml Syringe IM 08/14/20 18:19 .ONCE ONE Lidocaine HCl 2 ml 08/14/20 18:18 Lidocaine 1% Pf 2 Ml Sdv INJECT 08/14/20 18:19 ONETIME ONE Departure - Departure Time of Disposition: 18:42 Disposition: Home, Self-Care 01 Clinical Impression: Laceration - Discharge Information Instructions: Laceration Care, Adult Referrals: Gerson Sanchez MD [Primary Care Provider] - Sepsis Event Note (ED) - Focused Exam Vital Signs: Vital Signs Temp Pulse Resp BP Pulse Ox 08/14/20 18:25 98.2 F 81 18 156/75 H 97 - My Orders Last 24 Hours: My Active Orders 08/14/20 18:39 Acetaminophen/Codeine [Tylenol with Codeine No.3 300MG/30MG] 1 tab PO ONETIME ONE - Assessment/Plan Last 24 Hours: My Active Orders 08/14/20 18:39 Acetaminophen/Codeine [Tylenol with Codeine No.3 300MG/30MG] 1 tab PO ONETIME ONE
[2020-08-14] MEDS ORDERED: Bacitracin Oint 1 GM U/D Packet TOP ONE (18:26)
[2020-08-14 18:30] VITALS: BP 156/75; PULSE 81
[2020-08-14] MEDS ORDERED: Acetaminophen/Codeine 300-30 MG Tab PO ONE (18:39)
== END 2020-08-14 19:04 | disposition home or self-care (01) ==
LOC: MW.ED 18:10
DX: S61.012A Laceration without foreign body of left thumb without damage to nail, initial encounter (principal); E66.9 Obesity, unspecified; Z68.36 Body mass index [BMI] 36.0-36.9, adult; W26.8XXA Contact with other sharp object(s), not elsewhere classified, initial encounter
CPT/HCPCS: 12001; 99282; A9270

== ENCOUNTER 2020-08-21 14:14 | Emergency (ER) | payer OTHER ==
[2020-08-21 20:21] VITALS: BP 151/68; PULSE 69
== END 2020-08-21 14:40 | disposition left against medical advice (07) ==
LOC: MW.ED 14:14
DX: Z48.02 Encounter for removal of sutures (principal)

== ENCOUNTER 2020-10-22 22:41 | Emergency (ER) | payer OTHER ==
--- NOTE | 2020-10-22 23:25 | EDM.PDOC ---
ED HPI GENERAL MEDICAL PROBLEM - General Chief Complaint: Lower Extremity Injury/Pain Stated Complaint: SWOLLEN ANKLE Time Seen by Provider: 10/22/20 22:47 Source of Information: Reports: Patient History Limitations: Reports: No Limitations - History of Present Illness INITIAL COMMENTS - FREE TEXT/NARRATIVE: Patient is a 30-year-old male presents today for left ankle pain. Patient dates that he hit himself in the medial side of his ankle with a sledgehammer while at work. Patient states is happening over 19 hours ago but he went to work and that will be fine but when he went out today had trouble ambulating only due to the pain. Patient states that the swelling is gone down since apply ice. Patient is a pain is not radiate only made better with with rest made better with walking. Patient denies any other associated symptoms. left ankle Pain Score (Numeric/FACES): 10 - Related Data Allergies Allergy/AdvReac Type Severity Reaction Status Date / Time No Known Allergies Allergy Verified 10/22/20 23:28 Home Meds: Home Meds Sertraline HCl 100 mg PO DAILY 04/01/20 [History] Fish Oil/[place]-3 Fatty Acids [Fish Oil 1,000 MG] 1 tab PO DAILY 04/20/20 [History] Multivitamin 1 tab PO DAILY 04/20/20 [History] traZODone HCl [Trazodone HCl] 50 mg PO BEDTIME 04/20/20 [History] buPROPion [Wellbutrin] 0 mg PO DAILY 08/14/20 [History] Past Medical History - Past Health History Medical/Surgical History: Denies Medical/Surgical History HEENT History: Reports: None Cardiovascular History: Reports: None Respiratory History: Reports: None Gastrointestinal History: Reports: Other (See Below) Other Gastrointestinal History: intermittent epigastric pain Genitourinary History: Reports: None Musculoskeletal History: Reports: Fracture Other Musculoskeletal History: hx fx ankle, ribs and collarbone Neurological History: Reports: Migraines Psychiatric History: Reports: Anxiety, Depression Endocrine/Metabolic History: Reports: Obesity/BMI 30+ Hematologic History: Reports: None Immunologic History: Reports: None Oncologic (Cancer) History: Reports: None Dermatologic History: Reports: None - Infectious Disease History Infectious Disease History: Reports: Chicken Pox - Past Surgical History Head Surgeries/Procedures: Reports: None HEENT Surgical History: Reports: Tonsillectomy Cardiovascular Surgical History: Reports: None Respiratory Surgical History: Reports: None GI Surgical History: Reports: Cholecystectomy, EGD, Other (See Below) Other GI Surgeries/Procedures: hx anal fistulectomy Male Surgical History: Reports: None Endocrine Surgical History: Reports: None Neurological Surgical History: Reports: None Musculoskeletal Surgical History: Reports: Other (See Below) Other Musculoskeletal Surgeries/Procedures:: repair of fx ankle Oncologic Surgical History: Reports: None Dermatological Surgical History: Reports: None Social & Family History - Family History Family Medical History: No Pertinent Family History - Caffeine Use Caffeine Use: Reports: Coffee, Energy Drinks, Soda Review of Systems - Review of Systems Review Of Systems: See Below Constitutional: Reports: No Symptoms Eyes: Reports: No Symptoms Ears: Reports: No Symptoms Nose: Reports: No Symptoms Mouth/Throat: Reports: No Symptoms Respiratory: Reports: No Symptoms Cardiovascular: Reports: No Symptoms GI/Abdominal: Reports: No Symptoms Genitourinary: Reports: No Symptoms Musculoskeletal: Reports: Foot Pain Skin: Reports: No Symptoms Neurological: Reports: No Symptoms Psychiatric: Reports: No Symptoms ED EXAM, GENERAL - Physical Exam Exam: See Below Exam Limited By: No Limitations General Appearance: Alert, WD/WN, No Apparent Distress Respiratory/Chest: No Respiratory Distress, Lungs Clear, Normal Breath Sounds Cardiovascular: Normal Peripheral Pulses, Regular Rate, Rhythm Peripheral Pulses: 2+: Radial (L), Radial (R) GI/Abdominal: Normal Bowel Sounds, Soft, Non-Tender Extremities: Normal Inspection, Normal Range of Motion, Non-Tender Neurological: Alert, Oriented, Normal Gait Course - Vital Signs Last Recorded V/S: Last Vital Signs Temp 97.4 F 10/22/20 23:28 Pulse 74 10/22/20 23:28 Resp 18 10/22/20 23:28 BP 129/61 10/22/20 23:28 Pulse Ox 96 10/22/20 23:28 - Re-Assessments/Exams Free Text/Narrative Re-Assessment/Exam: 10/23/20 00:40 Patient x-ray is normal. Patient does not require any crutches patient will have an Paul wrap instructed to ice and keep elevated. Departure - Departure Time of Disposition: 00:40 Disposition: Home, Self-Care 01 Condition: Good Clinical Impression: Ankle sprain - Discharge Information *PRESCRIPTION DRUG MONITORING PROGRAM REVIEWED*: Not Applicable *COPY OF PRESCRIPTION DRUG MONITORING REPORT IN PATIENT DARRYL: Not Applicable Instructions: Ankle Sprain, [id number] Referrals: Gerson Sanchez MD [Primary Care Provider] - Forms: ED Department Discharge Additional Instructions: The following information is given to patients seen in the emergency department who are being discharged to home. This information is to outline your options for follow-up care. We provide all patients seen in our emergency department with a follow-up referral. The need for follow-up, as well as the timing and circumstances, are variable depending upon the specifics of your emergency department visit. If you don't have a primary care physician on staff, we will provide you with a referral. We always advise you to contact your personal physician following an emergency department visit to inform them of the circumstance of the visit and for follow-up with them and/or the need for any referrals to a consulting specialist. The emergency department will also refer you to a specialist when appropriate. This referral assures that you have the opportunity for follow-up care with a specialist. All of these measure are taken in an effort to provide you with optimal care, which includes your follow-up. Under all circumstances we always encourage you to contact your private physician who remains a resource for coordinating your care. When calling for follow-up care, please make the office aware that this follow-up is from your recent emergency room visit. If for any reason you are refused follow-up, please contact the [facility] Emergency Department at and asked to speak to the emergency department charge nurse. Please follow up with your primary care physician. If you do not have a primary care physician, see below: [facility] [address] [place] [id number] [facility] [address] [place] [address] You are seen today at the head near 7 foot with a hammer. We did x-rays that did not show any acute fractures. Recommend to keep the foot elevated and ice it and limit ambulating on it as much as possible. If you start pain at the week please follow-up to primary care physician. Any other concerning signs symptoms please return to the ED. Sepsis Event Note (ED) - Focused Exam Vital Signs: Vital Signs Temp Pulse Resp BP Pulse Ox 10/22/20 23:28 97.4 F 74 18 129/61 96 - Assessment/Plan Plan: Patient is a 30-year-old male presents today for left ankle pain with himself and ankle a sledgehammer. Will obtain x-rays and reassess patient.
--- NOTE | 2020-10-23 00:36 | CR ---
Indication: Struck with hammer Technique: Three views left ankle Comparison: None Findings: Bones: Alignment is normal. No fractures or bone lesions. Joint spaces: Unremarkable. Soft tissues: Unremarkable. Impression: Negative. Dictated by Laure Dickey MD @ 10/23/2020 12:35:[address] Laure Dickey @ Oct 23 2020 12:35AM
[2020-10-23 02:14] VITALS: BP 129/61; PULSE 74
== END 2020-10-23 00:59 | disposition home or self-care (01) ==
LOC: MW.ED 22:41
DX: S93.402A Sprain of unspecified ligament of left ankle, initial encounter (principal); E66.9 Obesity, unspecified; Z68.35 Body mass index [BMI] 35.0-35.9, adult; Z79.899 Other long term (current) drug therapy; W22.8XXA Striking against or struck by other objects, initial encounter; Y92.89 Other specified places as the place of occurrence of the external cause; Y99.0 Civilian activity done for income or pay
CPT/HCPCS: 73610-26-LT; 73610-LT; 99283

== ENCOUNTER 2022-04-28 14:50 | Emergency (ER) | payer OTHER ==
[2022-04-28 16:32] VITALS: BP 139/79; PULSE 76
[2022-04-28] MEDS ORDERED: Ibuprofen 600 MG Tab PO ONE (16:59)
[2022-04-28] MEDS ORDERED: Acetaminophen 500 MG Tab PO ONE (17:00)
== END 2022-04-28 17:42 | disposition home or self-care (01) ==
LOC: MW.ED 14:50
DX: H60.91 Unspecified otitis externa, right ear (principal); E66.9 Obesity, unspecified; Z68.36 Body mass index [BMI] 36.0-36.9, adult
CPT/HCPCS: 99282; A9270

== ENCOUNTER 2022-07-26 14:54 | Emergency (ER) | payer OTHER ==
[2022-07-26] MEDS ORDERED: Diphtheria,Pertussis(Acell),Tetanus Vaccine 0.5 ML Syringe IM ONE (15:02)
[2022-07-26 15:07] VITALS: PULSE 110
[2022-07-26] MEDS ORDERED: Bacitracin Oint 1 GM U/D Packet TOP ONE (15:57)
[2022-07-26 16:15] VITALS: BP 137/84
== END 2022-07-26 16:13 | disposition home or self-care (01) ==
LOC: MW.ED 14:54
DX: S61.431A Puncture wound without foreign body of right hand, initial encounter (principal); E66.9 Obesity, unspecified; Z68.36 Body mass index [BMI] 36.0-36.9, adult; Z79.899 Other long term (current) drug therapy; Z23 Encounter for immunization; W26.8XXA Contact with other sharp object(s), not elsewhere classified, initial encounter
CPT/HCPCS: 73130-26-RT; 73130-RT; 90471; 90715; 99283-25

== ENCOUNTER 2022-08-27 19:54 | Emergency (ER) | payer OTHER ==
[2022-08-27 20:14] LABS: BASOPHILS PERCENT AUTO 0.2 % (0.0-1.5); EOSINOPHILS ABSOLUTE AUTO 0.2 K/uL (0.0-0.7); EOSINOPHILS PERCENT AUTO 1.6 % (0.0-7.0); HEMATOCRIT 40.9 % (38.0-50.0); HEMOGLOBIN 14.7 g/dL (13.0-17.0); LYMPHOCYTES ABSOLUTE AUTO 3.2 K/uL (0.6-2.4); LYMPHOCYTES PERCENT AUTO 31.4 % (16.0-40.0); MEAN CORPUSCULAR HEMOGLOBIN 31.7 pg (27.0-32.0); MEAN CORPUSCULAR HGB CONC 35.9 g/dL (31.0-37.0); MEAN CORPUSCULAR VOLUME 88.3 fL (80.0-98.0); MONOCYTES ABSOLUTE AUTO 0.6 K/uL (0.0-0.8); MONOCYTES PERCENT AUTO 5.6 % (0.0-15.0); NEUTROPHILS ABSOLUTE AUTO 6.1 K/uL (1.4-5.7); NEUTROPHILS PERCENT AUTO 61.2 % (48.0-80.0); NRBC ABSOLUTE 0 K/uL; PLATELET COUNT,PLT 289 K/uL (150-400); RED BLOOD CELL COUNT 4.63 M/uL (4.50-5.90); WHITE BLOOD CELL COUNT,WBC 10.03 K/uL (4.0-11.0)
[2022-08-27 20:19] LABS: BILIRUBIN,URINE NEGATIVE (NEGATIVE); COLOR,URINE YELLOW; GLUCOSE,URINE NEGATIVE (NEGATIVE); KETONES,URINE NEGATIVE (NEGATIVE); LEUKOCYTE ESTERASE,URINE TRACE (NEGATIVE); NITRITE,URINE NEGATIVE (NEGATIVE); OCCULT BLOOD,URINE NEGATIVE (NEGATIVE); PROTEIN,URINE TRACE mg/dL (NEGATIVE); UROBILINOGEN,URINE 0.2 EU/dL (<2.0)
[2022-08-27 20:29] LABS: APPEARANCE,URINE SLT CLOUDY
[2022-08-27 20:30] LABS: BACTERIA,URINE FEW (NEGATIVE); EPITHELIAL CELLS,URINE RARE (NONE-FEW); RBC,URINE 0-1 (0-2/HPF)
[2022-08-27 20:43] LABS: A/G RATIO 1.1 (0.9-1.6); BILIRUBIN TOTAL 0.4 mg/dL (0.2-1.0); CALCIUM 8.7 mg/dL (8.5-10.1); CARBON DIOXIDE,CO2 25.6 mmol/L (21.0-32.0); CREATININE 1.1 mg/dL (0.8-1.3); EST CRCL DRUG DOSING (CG) 108.95 mL/min; POTASSIUM,K 3.6 mmol/L (3.5-5.1); PROTEIN TOTAL,TP 7.5 g/dL (6.4-8.2)
[2022-08-27] MEDS ORDERED: Acetaminophen/oxyCODONE 325-5 MG Tab PO ONE (20:45)
[2022-08-27] MEDS ORDERED: Ondansetron 4 MG Tab.DIS PO ONE (20:45)
[2022-08-27] MEDS ORDERED: Doxycycline 100 MG Cap PO ONE (21:52)
[2022-08-27 22:02] VITALS: BP 139/100; PULSE 99
[2022-08-27 23:15] LABS: C. TRACHOMATIS BY PCR DETECTED; N. GONORRHOEAE BY PCR NOT DETECTED
== END 2022-08-27 22:04 | disposition home or self-care (01) ==
LOC: MW.ED 19:54
DX: R10.9 Unspecified abdominal pain (principal); E66.9 Obesity, unspecified; Z68.38 Body mass index [BMI] 38.0-38.9, adult
CPT/HCPCS: 36415; 74176; 80053; 81001; 85025; 87086; 87491; 87591; 99284; A9270; 99283

== ENCOUNTER 2022-08-30 04:53 | Emergency (ER) | payer OTHER ==
[2022-08-30] MEDS ORDERED: Orphenadrine 60 MG/2 ML Inj IM ONE (05:20)
[2022-08-30] MEDS ORDERED: Ketorolac 30 MG/ML SDV IM STA (05:21)
[2022-08-30] MEDS ORDERED: Ketorolac 30 MG/ML SDV IVPUSH ONE (06:02)
[2022-08-30] MEDS ORDERED: Sodium Chloride 0.9% 2.5 ML Syringe FLUSH PRN (06:05)
[2022-08-30] MEDS ORDERED: Sodium Chloride 0.9% 10 ML Syringe FLUSH PRN (06:05)
[2022-08-30] MEDS ORDERED: Iopamidol 755 MG/ML 500 ML Multipack Bottle IVPUSH STA (06:58)
[2022-08-30] MEDS ORDERED: Acetaminophen/HYDROcodone 325-5 MG Tab PO ONE (08:14)
[2022-08-30 08:33] VITALS: BP 122/61; PULSE 66
== END 2022-08-30 08:33 | disposition home or self-care (01) ==
LOC: MW.ED 04:53
DX: R10.9 Unspecified abdominal pain (principal); M54.50 Low back pain, unspecified; E66.9 Obesity, unspecified; Z68.38 Body mass index [BMI] 38.0-38.9, adult; X50.0XXA Overexertion from strenuous movement or load, initial encounter
CPT/HCPCS: 74177; 96372; 96374; 99284; A9270; J1885; J2360; J3490; Q9967; 99283

== ENCOUNTER 2023-12-21 18:21 | Emergency (ER) | payer BC, OTHER ==
[2023-12-21 19:25] LABS: CORONAVIRUS COVID-19 NAA NEGATIVE (NEGATIVE); INFLUENZA A NAA NEGATIVE (NEGATIVE); INFLUENZA B NAA NEGATIVE (NEGATIVE); RESPIRATORY SYNCYTIAL VIR NAA NEGATIVE (NEGATIVE)
[2023-12-21] MEDS: Doxycycline 100 MG Cap PO ONE (19:56)
[2023-12-21] MEDS: Codeine/Promethazine 10-6.25 MG/5 ML Syrup 5 ML UD Syringe PO STA (20:00)
[2023-12-21 20:39] VITALS: BP 126/70; PULSE 92
== END 2023-12-21 20:05 | disposition home or self-care (01) ==
LOC: MW.ED 18:21
DX: J20.9 Acute bronchitis, unspecified (principal); E66.9 Obesity, unspecified; Z90.49 Acquired absence of other specified parts of digestive tract; Z79.899 Other long term (current) drug therapy; Z75.8 Other problems related to medical facilities and other health care; Z68.30 Body mass index [BMI] 30.0-30.9, adult
CPT/HCPCS: 0241U; 71045; 99283; A9270; J3490